=== PATIENT | female | born 2000 | race African-American/Black ===

== ENCOUNTER 2019-03-09 18:58 | Emergency (ER) | payer OTHER ==
[2019-03-09 20:02] VITALS: BP 118/81
--- NOTE | 2019-03-09 21:01 | UC ---
Complaint Female HPI - HPI Summary HPI Summary: 18-year-old female comes in with a chief complaint of abnormal vaginal discharge and left labial swelling. Started about 2 days ago. She reports a discharge is yellowish discharge does itch. She reports her last time she had a sexual encounter was 4-1/2 months ago. Last menstrual. Was February 09. She is on control. No cranial any abdominal pain or fever. She does have burning with urination. - History Of Current Complaint Chief Complaint: [facility]CGU Stated Complaint: PERSONAL Time Seen by Provider: 03/09/19 20:48 Hx Last Menstrual Period: 02/09/19 Pain Intensity: 5 - Allergies/Home Medications Allergies/Adverse Reactions: Allergies Allergy/AdvReac Type Severity Reaction Status Date / Time lactose AdvReac Congestion Verified 03/09/19 19:56 cillins Allergy Hives Uncoded 03/09/19 19:56 PMH/Surg Hx/FS Hx/Imm Hx Previously Healthy: Yes GI/ History: Kidney Stones Other GI/ History: RECURRENT UTIS - Surgical History Surgical History: Yes Surgery Procedure, Year, and Place: Left foot sx. Right breast sx to remove extra nipple - Family History Known Family History: Positive: Non-Contributory - Social History Alcohol Use: None Substance Use Type: None Smoking Status (MU): Never Smoked Tobacco Review of Systems All Other Systems Reviewed And Are Negative: Yes Constitutional: Positive: Negative Skin: Positive: Negative Eyes: Positive: Negative ENT: Positive: Negative Respiratory: Positive: Negative Cardiovascular: Positive: Negative Gastrointestinal: Positive: Negative Genitourinary: Positive: Dysuria, Vaginal/Penile Discharge Motor: Positive: Negative Neurovascular: Positive: Negative Musculoskeletal: Positive: Negative Neurological: Positive: Negative Psychological: Positive: Negative Is Patient Immunocompromised?: No Physical Exam Triage Information Reviewed: Yes Appearance: Well-Appearing, No Pain Distress, Well-Nourished Vital Signs: Initial Vital Signs Temp 98.5 F 03/09/19 19:57 Pulse 80 03/09/19 19:57 Resp 16 03/09/19 19:57 BP 118/81 03/09/19 19:57 Pulse Ox 99 03/09/19 19:57 Vital Signs Reviewed: Yes Eye Exam: Normal Eyes: Positive: Conjunctiva Clear Neck: Positive: Supple Respiratory: Positive: No respiratory distress Abdomen Description: Positive: Nontender, Soft Bowel Sounds: Positive: Present Pelvic Exam: Positive: Other - There is no obvious lesions on exam there is some swelling of the left labia but no signs of an abscess. There is yellow copious discharge. No cervical motion tenderness. Musculoskeletal: Positive: Strength Intact, ROM Intact Neurological: Positive: Alert Psychological: Positive: Age Appropriate Behavior Skin Exam: Normal Complaint Female Dx - Course Course Of Treatment: Urine did have leukocytes we'll treat with Keflex. Patient prefers to use liquid. Here in clinic we did not have Diflucan site wrote a prescription for Monistat which the patient prefers over pills. For BV she did receive 1 dose of by mouth Flagyl here in clinic and I also did a prescription for MetroGel vaginal. No treatment for gonorrhea chlamydia at this time based on the patient 's history of no recent sexual activity however if either one of those comes back positive she'll need to be treated for those. Patient to get reevaluated sooner if worse or any questions or concerns. - Differential Dx/Diagnosis Provider Diagnosis: Vaginitis Discharge ED - Sign-Out/Discharge Documenting (check all that apply): Patient Departure All imaging exams completed and their final reports reviewed: No Studies - Discharge Plan Condition: Stable Disposition: HOME Prescriptions: Cephalexin SUSP* [Keflex SUSP 250 MG/5 ML*] 500 mg PO TID #210 ml metroNIDAZOLE [Metrogel] 1 applic VAGINAL BID 5 Days #10 applic Miconazole VAG.SUPP* [Monistat7*] 100 mg VAGINAL BEDTIME #7 vag.supp Patient Education Materials: Urinary Tract Infection in Women (ED), Vaginitis ( ED) Referrals: [facility] [Outside] Additional Instructions: FOLLOW UP WITH YOUR DOCTOR IF NOT COMPLETELY IMPROVED. GET REEVALUATED SOONER IF NOT IMPROVING OR YOUR CONDITION WORSENS OR ANY QUESTIONS OR CONCERNS - Billing Disposition and Condition Condition: STABLE Disposition: Home
[2019-03-09] MEDS ORDERED: Cephalexin SUSP* 250 MG/5 ML ORAL.SUSP 100 ML BTL PO ONE (21:17)
[2019-03-09] MEDS ORDERED: Fluconazole 150 MG TAB PO ONE (21:17)
[2019-03-09] MEDS ORDERED: metroNIDAZOLE TAB* 250 MG PO ONE (21:17)
--- NOTE | 2019-03-11 07:27 | UC ---
- Progress Note Progress Note: Vaginal DNA results come back from March 09, 2019. Gardnerella is positive. Eliza and Trichomonas are negative. Urine culture is pending. Patient was started on MetroGel and Monistat and also Keflex. Nursing to call patient inform the patient of the results and inform the patient that she can stop the Monistat and she should continue the MetroGel as that will treat the Gardnerella. With the urine culture pending she can continue the Keflex at this time. Course/Dx - Diagnoses Provider Diagnoses: Vaginitis Discharge ED - Sign-Out/Discharge Documenting (check all that apply): Patient Departure All imaging exams completed and their final reports reviewed: No Studies - Discharge Plan Condition: Stable Disposition: HOME Prescriptions: Cephalexin SUSP* [Keflex SUSP 250 MG/5 ML*] 500 mg PO TID #210 ml metroNIDAZOLE [Metrogel] 1 applic VAGINAL BID 5 Days #10 applic Miconazole VAG.SUPP* [Monistat7*] 100 mg VAGINAL BEDTIME #7 vag.supp Patient Education Materials: Urinary Tract Infection in Women (ED), Vaginitis ( ED) Referrals: [facility] [Outside] Additional Instructions: FOLLOW UP WITH YOUR DOCTOR IF NOT COMPLETELY IMPROVED. GET REEVALUATED SOONER IF NOT IMPROVING OR YOUR CONDITION WORSENS OR ANY QUESTIONS OR CONCERNS - Billing Disposition and Condition Condition: STABLE Disposition: Home
[2019-03-11 13:25] LABS: Chlamydia trachomatis NAA Negative (Negative); Neisseria gonorrhoeae (GC) NAA Negative (Negative)
--- NOTE | 2019-03-12 07:27 | UC ---
- Progress Note Progress Note: Notify patient NO UTI stop antibiotic (keflex) see PCP if still symptomatic Course/Dx - Diagnoses Provider Diagnoses: Vaginitis Discharge ED - Sign-Out/Discharge Documenting (check all that apply): Post-Discharge Follow Up All imaging exams completed and their final reports reviewed: No Studies - Discharge Plan Condition: Stable Disposition: HOME Prescriptions: Cephalexin SUSP* [Keflex SUSP 250 MG/5 ML*] 500 mg PO TID #210 ml metroNIDAZOLE [Metrogel] 1 applic VAGINAL BID 5 Days #10 applic Miconazole VAG.SUPP* [Monistat7*] 100 mg VAGINAL BEDTIME #7 vag.supp Patient Education Materials: Urinary Tract Infection in Women (ED), Vaginitis ( ED) Referrals: [facility] [Outside] Additional Instructions: FOLLOW UP WITH YOUR DOCTOR IF NOT COMPLETELY IMPROVED. GET REEVALUATED SOONER IF NOT IMPROVING OR YOUR CONDITION WORSENS OR ANY QUESTIONS OR CONCERNS - Billing Disposition and Condition Condition: STABLE Disposition: Home
== END 2019-03-09 21:36 | disposition home or self-care (01) ==
LOC: UCCORT 18:58
DX: N76.0 Acute vaginitis (principal); Z91.011 Allergy to milk products; Z88.0 Allergy status to penicillin; Z87.440 Personal history of urinary (tract) infections
CPT/HCPCS: 81003; 84702; 87086; 87480; 87491; 87510; 87591; 87660; 99203; A9270-GY; G0463